=== PATIENT | female | born 2000 | race Caucasian/White ===

== ENCOUNTER → 2022-08-14 15:18 | Outpatient (CLI) | payer OTHER, SELFPAY ==
--- NOTE | 2022-08-14 15:37 | DI.MRI.S_ITS ---
PROCEDURE: MR BRAIN (PITUITARY) WWO CON INDICATIONS: DISORDER OF THYROID/ SKIN DISTURBANCES/ FATIGUE TECHNIQUE: Noncontrast sagittal and axial FLAIR, axial gradient echo, axial diffusion and ADC through the brain. Thin-slice sagittal and coronal T1 spin echo, coronal T2 fast spin echo through the pituitary. After the administration contrast, optional dynamic coronal T1 spin echo, thin-slice coronal and sagittal T1 spin echo images through the pituitary fossa; axial and coronal and sagittal T1 spin echo with fat saturation through the brain. COMPARISON: None. FINDINGS: Image quality: Excellent. Pituitary Gland: Pituitary gland is normal in size. Infundibulum is midline. There are no areas of mass lesion or abnormal/delayed enhancement. CSF Spaces: Ventricles are normal in size and shape. Basal cisterns are patent. No extra-axial fluid collections. Brain: No intracranial bleeds or mass effects. No abnormal intracranial enhancement. Steve-white matter interface is intact. Diffusion weighted images demonstrate no acute ischemic insults. Brainstem is normal. Normal intravascular flow voids are present. Skull and face: Calvarial marrow is normal in signal. Orbits appear normal. Sinuses: Sinuses and mastoids are clear. IMPRESSION: Unremarkable exam. Pituitary gland is within normal limits. Dictated by: Edelmira Arce M.D. on 08/14/2022 at 18:54 Approved by: Edelmira Arce M.D. on 08/14/2022 at 18:57
== END ==
DX: E07.9 Disorder of thyroid, unspecified (principal); R20.8 Other disturbances of skin sensation; R53.83 Other fatigue; R63.5 Abnormal weight gain; L65.9 Nonscarring hair loss, unspecified
CPT/HCPCS: 70553; A9579